=== PATIENT | male | born 1960 | race Asian ===

== ENCOUNTER 2020-09-25 22:33 | Emergency (ER) | payer OTHER ==
[2020-09-25 22:51] VITALS: TEMP 100.4; BMI 27.1
[2020-09-25 23:17] LABS: BASO % 3.9 % (0-2.0); EOS % 0.7 % (0-4.5); HEMATOCRIT 41.8 % (35.4-49); HEMOGLOBIN 14.1 GM/dl (11.7-16.9); LYMPH % 24.5 % (8-40); MCH 29.9 pg (25.7-33.7); MCHC 33.8 g/dl (32.0-35.9); MEAN CELL VOLUME 88.4 fl (80-96); MEAN PLT VOLUME 9.9 fl (7.5-11.1); MONO % 4.3 % (3.8-10.2); NEUT % 66.6 % (42.8-82.8); PLATELET COUNT 204 10^3/uL (134-434); RBC 4.72 M/mm3 (4.00-5.60); RDW 14.3 % (11.9-15.9); WHITE BLOOD COUNT 11.2 K/mm3 (4.0-10.8)
[2020-09-25 23:47] LABS: ALBUMIN 3.5 g/dl (3.4-5.0); ALK PHOS 78 U/L (45-117); ANION GAP 10 MMOL/L (8-16); BILIRUBIN,TOTAL 0.9 mg/dl (0.2-1); CALCIUM 8.2 mg/dl (8.5-10); CHLORIDE 103 mmol/L (98-107); CO2 19 mmol/L (21-32); CREATININE 0.9 mg/dl (0.55-1.3); GLUCOSE,RANDOM 171 mg/dl (74-106); SGOT/AST 39 U/L (15-37); SGPT/ALT 45 U/L (13-61); SODIUM 132 mmol/L (136-145); TOT PROT 6.5 g/dl (6.4-8.2)
[2020-09-26] MEDS ORDERED: ALBUTEROL SO4 2.5/IPRATROPIUM 0.5 INH SOL 3 ML VIAL.NEB. NEB ONE ×2 (00:10→00:21)
[2020-09-26] MEDS ORDERED: predniSONE 20 MG TABLET (UD) PO ONE (00:10)
[2020-09-26] MEDS ORDERED: predniSONE 20 MG TABLET (UD) ONE (00:21)
[2020-09-26 00:55] VITALS: BP 122/80; PULSE 92
== END 2020-09-26 01:11 | disposition home or self-care (01) ==
LOC: FER 22:33
PROC: 3E0F7GC Introduction of Other Therapeutic Substance into Respiratory Tract, Via Natural or Artificial Opening (ICD-10-PCS; principal; 2020-09-26)
DX: J44.1 Chronic obstructive pulmonary disease with (acute) exacerbation (principal)
CPT/HCPCS: 36415; 71045-TC-FY; 80053; 82550; 82553; 83880; 84484; 85025; 93005; 99284-25; C9803; U0003; U0005